=== PATIENT | female | born 1945 | race Caucasian/White ===

== ENCOUNTER → 2017-03-10 | Outpatient (CLI) | payer MEDICARE ==
[~2017-03-10] MED LIST: LUTEIN PO; SINGULAIR10 MG PO; Z VITAMIN D PO; Z.0.CALCIUM 500+VI1; Z.0.FISH OIL500 MG PO; Z.3.CENTRUM SILVER1; ZYRTEC10 MG PO; [UNRECOGNIZED DRUG - OTHER]
--- NOTE | 2017-03-10 10:23 | Diagnostic Imaging Report ---
PROCEDURE:X-RAY ABDOMEN - KUB COMPARISON:10/07/2016. INDICATIONS:CALCULI OF KIDNEY FINDINGS: The bowel gas pattern shows no dilated, air-filled loops of bowel. Gas and fecal material are noted throughout the colon. No abnormal calcifications are identified projecting over the renal shadows or expected ureteral courses. Regional skeletal structures are intact with multilevel degenerative disc changes of the lumbar spine. No mass effect or organomegaly. CONCLUSION: No plain film evidence of urolithiasis. Dictated by: Prasanth Pérez M.D. on 03/10/2017 at 10:31 Electronically approved by: Prasanth Pérez M.D. on 03/10/2017 at 10:31
== END ==
LOC: RAD 09:19
PROVIDERS: ATTEND Urology
DX: N20.0 Calculus of kidney (principal)
CPT/HCPCS: 74000

== ENCOUNTER → 2018-04-11 | Outpatient (CLI) | payer MEDICARE ==
--- NOTE | 2018-04-11 13:20 | Diagnostic Imaging Report ---
Abdomen, 2 views. History: Stones. Findings: The intestinal gas pattern is nonobstructive. A small stone over the right kidney measures 3.4 mm. Calcification near the right UVJ could be vascular or a distal ureteral stone measuring 4 mm. There no masses. Degenerative changes of the spine. IMPRESSION: 1. No acute abdominal abnormality. 2. Stones as described above. Signed by: Dr. Humberto Davis DO on 04/11/2018 1:17 PM
== END ==
LOC: RAD 10:55
PROVIDERS: ATTEND Urology
DX: N20.0 Calculus of kidney (principal)
CPT/HCPCS: 74018

== ENCOUNTER → 2018-11-07 | Outpatient (CLI) | payer MEDICARE ==
--- NOTE | 2018-11-07 13:54 | Diagnostic Imaging Report ---
EXAM: ABDOMEN-1VIEW (KUB) DATE: 11/07/2018 1:16 PM INDICATION: Calculus of kidney COMPARISON: 04/11/2018 FINDINGS: The previously visualized small right renal stone is not well appreciated on today's examination. Stable appearing phleboliths noted within the pelvis. No new abnormal intra-abdominal calcification is appreciated. Bowel gas pattern appears nonobstructive/nondilated. There are degenerative changes of the visualized spine. No acute osseous abnormalities identified. IMPRESSION: No acute radiographic abnormality identified within the abdomen. Signed by: Dr. Everton Shields MD on 11/07/2018 1:51 PM
== END ==
LOC: RAD 13:07
PROVIDERS: ATTEND Urology
DX: N20.0 Calculus of kidney (principal)
CPT/HCPCS: 74018

== ENCOUNTER → 2019-05-10 | Outpatient (CLI) | payer MEDICARE ==
[~2019-05-10] MED LIST changes: +TYLENOL PO
--- NOTE | 2019-05-10 14:02 | Diagnostic Imaging Report ---
Exam: KUB - 2 views Indication: Renal calculus Comparison: Multiple prior KUBs most recently 11/07/2018 Findings: No radiographically apparent renal calculi. Nonobstructive bowel gas pattern. No free air. Mild degenerative changes of the visualized spine and both hip joints. Partially visualized lung bases appear clear. Impression: No radiographically apparent renal calculi. Signed by: Kostas Bains MD on 05/10/2019 1:59 PM
== END ==
LOC: RAD 13:26
PROVIDERS: ATTEND Urology
DX: N20.1 Calculus of ureter (principal)
CPT/HCPCS: 74018

== ENCOUNTER → 2019-12-05 | Outpatient (CLI) | payer MEDICARE ==
--- NOTE | 2019-12-05 11:43 | Diagnostic Imaging Report ---
Exam: KUB - 2 views Indication: Renal calculus Comparison: KUB of 05/10/2019 Findings: No radiographically apparent urinary calculi. Nonobstructive bowel gas pattern. No free air. No acute osseous injury. Degenerative changes of the visualized spine and both hip joints. Tiny phleboliths in the pelvis. Impression: No radiographically apparent urinary calculi. Signed by: Kostas Bains MD on 12/05/2019 11:40 AM
== END ==
LOC: RAD 10:34
PROVIDERS: ATTEND Urology
DX: N20.1 Calculus of ureter (principal)
CPT/HCPCS: 74018

== ENCOUNTER → 2022-01-13 | Day surgery (SDC) | payer MEDICARE ==
[2022-01-11 10:40] LABS: BASOPHILS % 0.4 % (0.0-1.0); EOSINOPHILS % 0.4 % (0.0-6.0); HEMATOCRIT 38.7 % (34.2-44.1); HEMOGLOBIN 11.6 g/dL (12.0-16.0); LYMPHOCYTES # (AUTO) 2.4 (1.0-3.2); MEAN CORPUSCULAR HEMOGLOBIN 21.5 pg (28-32); MEAN CORPUSCULAR VOLUME 71.8 fL (81-99); MONOCYTES # (AUTO) 0.6 (0.2-0.8); MONOCYTES % 7.9 % (4.4-11.3); NEUTROPHILS # (AUTO) 4.1 (2.1-6.9); PLATELET COUNT 321 x10e3/uL (140-360); RED BLOOD COUNT 5.39 x10e6/uL (3.6-5.1); RED CELL DISTRIBUTION WIDTH 14.4 % (11.7-14.4)
[2022-01-11 11:20] LABS: ALBUMIN 3.9 g/dL (3.5-5.0); ANION GAP 14.2 mmol/L (8-16); CALCIUM 9.3 mg/dL (8.4-10.2); CREATININE, SERUM 0.75 mg/dL (0.57-1.11); POTASSIUM 4.2 mmol/L (3.5-5.1)
[~2022-01-13] MED LIST changes: +FENTANYL CITRATE/PF 100MCG/2 ML INJ ONE; +LIDOCAINE HCL 2% LOCAL INJ 5 ML SDV VIAL INJ ONE; +PROPOFOL IV EMULSION 10 MG/ML 20 ML VIAL ONE; +PROTONIX20 MG PO; +SIMETHICONE 40 MG/0.6 ML BTL ONE
[2022-01-13 09:30] VITALS: BP 147/77
== END | disposition home or self-care (01) ==
LOC: OR 06:34
PROVIDERS: ATTEND Surgery
DX: R19.4 Change in bowel habit (principal); K63.89 Other specified diseases of intestine; K21.9 Gastro-esophageal reflux disease without esophagitis; Z01.810 Encounter for preprocedural cardiovascular examination; Z01.812 Encounter for preprocedural laboratory examination; Z01.818 Encounter for other preprocedural examination
CPT/HCPCS: 36415; 45378; 71046; 80053; 85025; 93005; J2001; J2704; J3010